=== PATIENT | female | born 1980 | race Caucasian/White ===

== ENCOUNTER 2019-01-29 23:30 | Emergency (ER) | payer MEDICAID ==
[~2019-01-29] VITALS: Ht 157.5 cm; Wt 63.5 kg
[2019-01-29 23:41] VITALS: BP 156/112
--- NOTE | 2019-01-29 23:46 | NUR ---
PT AMBULATED TO LOBBY WITH VSS. PROVIDING URINE.
[2019-01-30 00:44] LABS: BASOPHILS % (AUTO) 0.4 % (0.0-2.0); EOSINOPHILS # (AUTO) 0.1 K/uL (0-0.4); HEMATOCRIT 39.4 % (36-48); HEMOGLOBIN 13.5 g/dL (12.0-16.0); LYMPHOCYTES # (AUTO) 2.6 K/uL (2.5-16.5); LYMPHOCYTES % (AUTO) 34.7 % (20.5-51.1); MEAN CORPUSCULAR HEMOGLOBIN 31 pg (27-31); MEAN CORPUSCULAR HGB CONC 34 g/dL (33-37); MEAN CORPUSCULAR VOLUME 91.7 fL (80-94); MONOCYTES # (AUTO) 0.6 K/uL (0.8-1.0); MONOCYTES % (AUTO) 7.4 % (1.7-9.3); NEUTROPHILS # (AUTO) 4.3 K/uL (1.8-7.7); NEUTROPHILS % (AUTO) 56.5 % (42.2-75.2); PLATELET COUNT (AUTO) 293 K/uL (140-450); RED CELL DISTRIBUTION WIDTH 12.4 % (11.6-13.7); WHITE BLOOD COUNT (AUTO) 7.6 K/uL (4.8-10.8)
[2019-01-30 00:47] LABS: APPEARANCE,URINE CLEAR (CLEAR); BILIRUBIN,URINE NEGATIVE (NEGATIVE); BLOOD, URINE 1+ (NEGATIVE); COLOR,URINE YELLOW (YELLOW); LEUKOCYTE ESTERASE ,URINE NEGATIVE (NEGATIVE); NITRITE, URINE NEGATIVE (NEGATIVE); PH,URINE 6.5 (5.0-9.0); UGLUCOSE NEGATIVE (NEGATIVE)
[2019-01-30 00:53] LABS: RBC,URINE 0-5 /HPF (0-5); WBC,URINE NONE SEEN /HPF (0-5)
[2019-01-30 00:57] LABS: ALBUMIN 3.7 g/dL (3.4-5.0); ANION GAP 12.6 (8-16); CARBON DIOXIDE 28.9 mmol/L (21-32); CREATININE 0.7 mg/dL (0.6-1.3); POTASSIUM 3.5 mmol/L (3.5-5.1); TOTAL BILIRUBIN 0.3 mg/dL (0.0-1.0)
--- NOTE | 2019-01-30 02:08 | NUR ---
38/F PRESENTS TO ED, C/O EPIGASTRIC PAIN, X2 DAYS INTERMITTENTLY, WORSENING X5 HRS. PT DENIES CP, SOB, FEVER, N/V/D, CONSTIPATION OR DYSURIA. PT AOX4, GCS 15, RR EVEN AND UNLABORED. LUNG SOUNDS CLEAR BL. BS ACTIVE X4, ABD SOFT FLAT TENDER TO EPIGASTRIC, DENIES LOWER QUADRANT TENDERNESS. DENIES MED HX, RX OR OTC.
--- NOTE | 2019-01-30 02:09 | NUR ---
PT AMBULATED TO BED 8
--- NOTE | 2019-01-30 03:10 | NUR ---
PT LAYING IN BED, RR EVEN AND UNLABORED. VSS. DENIES ANY EPIGASTRIC PAIN AT THIS TIME. ALL NEEDS MET.
[2019-01-30] MEDS ORDERED: DICYCLOMINE HCL LIQUID 20 MG, ALUMINUM HYD/MAG/SIMETHICONE 30 ML, LIDOCAINE VISCOUS 2% ... PO ONE ×3 (03:15)
--- NOTE | 2019-01-30 03:15 | NUR ---
Dr. Saucedo evaluating patient at bedside.
[2019-01-30 03:40] VITALS: BP 137/85
--- NOTE | 2019-01-30 03:40 | NUR ---
Patient discharged with v/s stable. Written and verbal after care instructions given and explained. Patient alert, oriented and verbalized understanding of instructions. Ambulatory with steady gait. All questions addressed prior to discharge. ID band removed. Patient advised to follow up with PMD. Rx of PRILOSEC, MOTRIN given. Patient educated on indication of medication including possible reaction and side effects. Opportunity to ask questions provided and answered.
== END 2019-01-30 03:40 | disposition home or self-care (01) ==
LOC: MED 23:30
DX: R10.13 Epigastric pain (principal)
CPT/HCPCS: 36415; 80053; 81001; 81025; 83690; 85025; 96374; 96375; 99283; 99285